=== PATIENT | female | born 1930 | race Caucasian/White ===

== ENCOUNTER → 2020-05-10 | Outpatient (CLI) | payer MEDICARE, OTHER | END | disposition home or self-care (01) | LOC: LABWHC1 08:30 | PROVIDERS: ATTEND Family Medicine | DX: Z11.59 Encounter for screening for other viral diseases (principal) | CPT/HCPCS: U0003; C9803 ==

== ENCOUNTER 2020-10-11 10:02 | Day surgery (SDC) | payer MEDICARE, OTHER ==
[2020-10-09 14:08] VITALS: BMI 26.5
[~2020-10-11 10:02] MED LIST: ACETAMINOPHEN TAB 500 MG TAB PO PRN; HEPARIN SODIUM,PORCINE 5,000 UNIT/ML 1 ML VIAL SQ PRN; Pre Op ABX Message 1 EACH MISC MISCELLANE ONE
[2020-10-11 10:49] VITALS: RESP 16; TEMP 97.4
[2020-10-11] MEDS ORDERED: LACTATED RINGERS 1,000 ML IV ONE (11:02)
--- NOTE | 2020-10-11 11:32 | P.GSHP ---
History of Present Illness H&P Date: 10/11/20 Chief Complaint: Squamous cell carcinoma left lower extremity This 89-year-old female who was recently diagnosed with a squamous cell carcinoma left lower extremity. Patient rents today for wide local excision. Past Medical History Past Medical History: Cancer, Hypertension, Osteoarthritis (OA) Additional Past Medical History / Comment(s): macular degeneration History of Any Multi-Drug Resistant Organisms: None Reported Past Surgical History: Appendectomy Additional Past Surgical History / Comment(s): nevus removed from scalp, skin cancer x5 Past Anesthesia/Blood Transfusion Reactions: No Reported Reaction Additional Past Anesthesia/Blood Transfusion Reaction / Comment(s): long to wake up Smoking Status: Former smoker - Past Family History Mother Family Medical History: No Reported History Medications and Allergies Home Medications Medication Instructions Recorded Confirmed Type Glucos Sul 2Kcl/MSM/Chond/C/Mn 1 each PO DAILY 10/09/20 10/11/20 History [Glucosamine Chondroitin Cap] Metoprolol Succinate (ER) [Toprol 25 mg PO DAILY 10/09/20 10/11/20 History Xl] Vit C/E/Zn/Coppr/Lutein/Zeaxan 1 each PO DAILY 10/09/20 10/11/20 History [Preservision Areds 2 Softgel] cycloSPORINE [Restasis] 1 applicator BOTH EYES BID 10/09/20 10/11/20 History Allergies Allergy/AdvReac Type Severity Reaction Status Date / Time No Known Allergies Allergy Verified 10/11/20 10:39 Surgical - Exam Vital Signs Temp Pulse Resp BP Pulse Ox 97.4 F L 50 L 16 184/82 97 10/11/20 10:47 10/11/20 10:47 10/11/20 10:47 10/11/20 10:47 10/11/20 10:47 - General well developed, well nourished, no distress - Eyes PERRL - ENT normal pinna - Neck no masses - Respiratory normal expansion - Cardiovascular Rhythm: regular - Abdomen Abdomen: soft - Genitourinary normal external genitalia - Integumentary 2 cm squamous cell carcinoma left lower extremity posterior mid calf Assessment and Plan Assessment: Clinical carcinoma. We'll perform wide local excision
[2020-10-11] MEDS ORDERED: PROPOFOL 10 MG/ML 20 ML VIAL IV ONE (11:34)
[2020-10-11] MEDS ORDERED: fentaNYL (PF) 50 MCG/ML 2 ML AMP ONE (11:34)
[2020-10-11] MEDS ORDERED: MIDAZOLAM 2 MG/2 ML VIAL ONE (11:34)
[2020-10-11] MEDS ORDERED: SODIUM CHLORIDE 0.9% 50 ML with ceFAZolin 1,000 MG IV ONE ×2 (11:45)
[2020-10-11] MEDS ORDERED: BUPIVACAINE (PF) 0.25% 30 ML VIAL SQ ONE (12:00)
--- NOTE | 2020-10-11 12:23 | P.OP ---
Date of Procedure: 10/11/20 Preoperative Diagnosis: Squamous cell carcinoma left lower extremity Postoperative Diagnosis: Squamous cell Carcinoma left lower extremity Procedure(s) Performed: Wide local excision of squamous cell carcinoma left lower extremity Anesthesia: MAC Pathology: other (Squamous cell carcinoma) Condition: stable Disposition: PACU Description of Procedure: A shunt placed on the operative table in the lateral position. She received IV sedation. Her left leg was prepped and draped usual sterile fashion. The skin anesthetized 1% local Xylocaine. The squamous cell carcinoma was then excised by using a 15 blade in elliptical skin incision was made around carcinoma. The Bovie hemostasis. The skin was then closed with interrupted 3-0 nylon. Patient top procedure well and was sent to recovery room stable condition
[2020-10-11 13:21] VITALS: BP 151/70; PULSE 59
--- NOTE | 2020-10-13 08:48 | CDI ---
Date: 10.13.2020 CDS/Clinical Data Specialist Name: Lucina Morales Phone: If any questions, call Bindu Kilgore Reed Maker at [phone] Patient Name: Kacie Black Admit Date 10.11.20 Discharge Date: 10.11.20 ATTENTION: The [facility] Coding Staff appreciate your assistance in clarifying documentation. Please respond to the clarification below the line at the bottom and electronically sign. The [facility] Coding staff will review the response and follow-up if needed. Please note: Queries are made part of the Legal Health Record. If you have any questions, please contact the Reed Maker. Dear Dr. Blue In order to code to the greatest specificity and for the greatest reimbursement I need the following information: Please specify what size the lesion was that you removed. Thank you for your kind consideration. 4 x 3 cm MTDD
== END 2020-10-11 13:23 | disposition home or self-care (01) ==
LOC: OR 10:02
PROVIDERS: ATTEND Surgery
DX: L98.8 Other specified disorders of the skin and subcutaneous tissue (principal); C44.729 Squamous cell carcinoma of skin of left lower limb, including hip; I10 Essential (primary) hypertension; M19.90 Unspecified osteoarthritis, unspecified site; H35.30 Unspecified macular degeneration; Z90.49 Acquired absence of other specified parts of digestive tract; Z87.2 Personal history of diseases of the skin and subcutaneous tissue; Z85.828 Personal history of other malignant neoplasm of skin; Z91.89 Other specified personal risk factors, not elsewhere classified; Z87.891 Personal history of nicotine dependence; Z79.899 Other long term (current) drug therapy; Z98.890 Other specified postprocedural states
CPT/HCPCS: 88305; 11406; J2250; J0690; J3010; J2704

== ENCOUNTER → 2021-12-19 | Outpatient (CLI) | payer MEDICARE ==
--- NOTE | 2021-12-19 12:37 | ECHOF ---
Referral Reason:R60.9 edema MEASUREMENTS -------- HEIGHT: 157.5 cm WEIGHT: 65.8 kg BP: IVSd: 1.1 cm (0.6 - 1.1) LVIDd: 4.4 cm (3.9 - 5.3) LVPWd: 1.0 cm (0.6 - 1.1) IVSs: 1.9 cm LVIDs: 1.9 cm LVPWs: 2.1 cm LAESV Index (A-L): 36.76 ml/m Ao Diam: 2.9 cm (2.0 - 3.7) AV Cusp: 1.7 cm (1.5 - 2.6) LA Diam: 4.2 cm (2.7 - 3.8) MV EXCURSION: 15.271 mm (> 18.000) MV EF SLOPE: 54 mm/s (70 - 150) EPSS: 1.7 cm MV E Agustin: 0.85 m/s MV DecT: 167 ms MV A Agustin: 0.71 m/s MV E/A Ratio: 1.20 AR PHT: 512 ms RAP: 5.00 mmHg RVSP: 9.71 mmHg FINDINGS -------- Sinus rhythm. This was a technically adequate study. The left ventricular size is normal. Left ventricular wall thickness is normal. Overall left vent ricular systolic function is normal with, an EF between 55 - 60 %. The LV end diastolic pressure is elevated 17.40. The right ventricle is normal in size. LA is moderately dilated 34-39 ml/m2 The right atrial size is normal. There is mild aortic valve sclerosis. Trace amount of aortic regurgitation. Mild mitral annular calcification present. Mild mitral regurgitation is present. The tricuspid valve appears structurally normal. Trace tricuspid regurgitation present. Right jaclyn tricular systolic pressure is normal at < 35 mmHg. Trace/mild (physiologic) pulmonic regurgitation. The aortic root size is normal. Normal inferior vena cava with normal inspiratory collapse consistent with estimated right atrial pre ssure of 5 mmHg. There is no pericardial effusion. CONCLUSIONS -------- 1. Left ventricular wall thickness is normal. 2. Overall left ventricular systolic function is normal with, an EF between 55 - 60 %. 3. LA is moderately dilated 34-39 ml/m2 4. Trace amount of aortic regurgitation. 5. Mild mitral annular calcification present. 6. Mild mitral regurgitation is present. 7. Trace tricuspid regurgitation present. 8. Trace/mild (physiologic) pulmonic regurgitation. 9. There is no pericardial effusion. WAITER/WAITRESS DINING CAR: Martha Garcia RDCS
== END | disposition home or self-care (01) ==
LOC: RADECHMAIN 11:33
PROVIDERS: ATTEND Family Medicine
DX: I08.8 Other rheumatic multiple valve diseases (principal)
CPT/HCPCS: 93306

== ENCOUNTER → 2022-05-20 | Outpatient (CLI) | payer MEDICARE, OTHER ==
--- NOTE | 2022-05-20 22:13 | CT ---
EXAMINATION TYPE: CT brain wo con CT DLP: 1094 mGycm, Automated exposure control for dose reduction was used. DATE OF EXAM: 05/20/2022 5:00 PM COMPARISON: None. CLINICAL INDICATION:Female, 89 years old with of G45.9 TRANSIENT CEREBRAL ISCHEMIC ATTACK, H/O TIA TECHNIQUE: Brain: Multiple axial CT images of the brain were obtained without IV contrast. FINDINGS: Brain: Extra-axial spaces: No abnormal extra-axial fluid collections. Ventricular system: Dilatation in proportion to cerebral atrophy. Cerebral parenchyma: Cerebral atrophy. No acute intraparenchymal hemorrhage or mass effect. The salmon -white junction is well differentiated. Scattered hypoattenuating areas are seen within the white mat ter. Cerebellum: Unremarkable. Mass effect: No evidence of midline shift. Intracranial vasculature: Atherosclerotic calcifications of the intracranial vessels. Soft tissues: Normal. Calvarium/osseous structures: No depressed skull fracture. Paranasal sinuses and mastoid air cells: Mild scattered paranasal sinus disease. 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 Visualized orbits: Senile calcific scleral plaques are present. IMPRESSION: 1. No acute intracranial process. 2. Nonspecific white matter changes, likely secondary to chronic small vessel ischemic disease.
--- NOTE | 2022-05-21 07:05 | US ---
EXAMINATION TYPE: US carotid duplex BILAT DATE OF EXAM: 05/20/2022 COMPARISON: NONE CLINICAL HISTORY: TIA G45.9. EXAM MEASUREMENTS: RIGHT: Peak Systolic Velocity (PSV) cm/sec ----- Right CCA: 46.3 ----- Right ICA: 68.6 ----- Right ECA: 82.3 ICA/CCA ratio: 1.48 RIGHT: End Diastole cm/sec ----- Right CCA: 11.6 ----- Right ICA: 18.0 ----- Right ECA: 9.9 LEFT: Peak Systolic Velocity (PSV) cm/sec ----- Left CCA: 70.3 ----- Left ICA: 66.5 ----- Left ECA: 75.5 ICA/CCA ratio: 0.95 LEFT: End Diastole cm/sec ----- Left CCA: 15.0 ----- Left ICA: 20.6 ----- Left ECA: 23.6 VERTEBRALS (direction of flow): Right Vertebral: Antegrade Left Vertebral: Antegrade Rhythm: Normal No significant stenosis seen. IMPRESSION: 1. No significant hemodynamic stenosis as visualized. 2. Mild atherosclerotic plaque. Criteria for Assigning % of Stenosis / Diameter reduction (Estimation based on the indirect measurements of the internal carotid artery velocities (ICA PSV). 1. Normal (no stenosis)=ICA PSV < 125 cm/s: ratio < 2.0: ICA EDV<40 cm/s. 2. Less than 50% stenosis=ICA PSV < 125 cm/s: ratio < 2.0: ICA EDV<40 cm/s. 3. 50 to 69% stenosis=ICA PSV of 125 to 230 cm/s: ration 2.0 ? 4.0: ICA EDV 40-100 cm/s. 4. Greater than 70% stenosis to near occlusion= ICA PSV > 230 cm/s: ratio > 4.0: ICA EDV > 100 cm/s. 5. Near occlusion= ICA PSV velocities may be low or undetectable: variable ratio and ICA EDV. 6. Total occlusion=unable to detect flow.
== END | disposition home or self-care (01) ==
LOC: RADUSWWP 15:43
PROVIDERS: ATTEND Family Medicine
DX: I65.23 Occlusion and stenosis of bilateral carotid arteries (principal); I67.82 Cerebral ischemia
CPT/HCPCS: 70450; 93880